=== PATIENT | female | born 1990 | race African-American/Black ===

== ENCOUNTER 2021-04-16 09:41 | Emergency (ER) | payer MEDICAID ==
[~2021-04-16] VITALS: Ht 165.1 cm; Wt 68.0 kg
[2021-04-16 09:46] VITALS: BP 128/84
[2021-04-16] MEDS ORDERED: IBUP-2029 MT (13:23)
[2021-04-16] MEDS ORDERED: CYCL10TA7 MT (13:24)
== END 2021-04-16 13:48 | disposition home or self-care (01) ==
LOC: ER 09:41
DX: S20.219A Contusion of unspecified front wall of thorax, initial encounter (principal); S16.1XXA Strain of muscle, fascia and tendon at neck level, initial encounter; S40.022A Contusion of left upper arm, initial encounter; V43.52XA Car driver injured in collision with other type car in traffic accident, initial encounter; Y93.89 Activity, other specified; Y92.488 Other paved roadways as the place of occurrence of the external cause
CPT/HCPCS: 71045; 72040; 73060; 81025; 99284